=== PATIENT | female | born 1980 | race Caucasian/White ===

== ENCOUNTER → 2016-05-02 | Emergency (ER) | payer OTHER ==
[~2016-05-02] MED LIST: HYDROmorphone HCL CARPU-JECT 1 MG/1 ML DISP.SYRIN IVPUSH ONE; ONDANSETRON 4 MG/2 ML VIAL IVPB ONE; ONDANSETRON 4 MG/2 ML VIAL ONE; OXYCODONE/APAP 5/325MG COMBO TABLET ONE; OXYCODONE/APAP 5/325MG COMBO TABLET PO ONE; SODIUM CHLORIDE 1,000 ML IV ONE; SULFAMETHOXAZOLE/TRIMETHOPRIM 800MG/160MG D.S. TABLET ONE; SULFAMETHOXAZOLE/TRIMETHOPRIM 800MG/160MG D.S. TABLET PO ONE
[2016-05-02 22:12] VITALS: BP 121/76; PULSE 85; TEMP 97.4; BMI 39.8
--- NOTE | 2016-05-02 23:12 | PDOC ---
History of Present Illness - General History Source: Patient Exam Limitations: No Limitations - History of Present Illness Initial Comments: 05/02/16 23:37 The patient is a 35 year old female, with a significant past medical history of kidney stones, who presents to the emergency department complaining of right flank pain since earlier this afternoon. The patient reports she recently presented to [facility] with similar symptoms, where she was being evaluated, but left before her CT scan was done. She reports she comes here with the same type of pain. She reports associated nausea, but denies vomiting, diarrhea, or constipation. She denies any dysuria, hematuria, frequency, or urgency. The patient denies any fever, chills, cough, headache, or dizziness. Allergies: None reported. Past Surgical History: None reported. Social History: Non-smoker. Denies alcohol or drug use. <Kameron Pereyra - Last Filed: 05/03/16 01:48> - General History Source: Patient <Tyrese Capone - Last Filed: 05/03/16 03:22> - General Chief Complaint: Pain Stated Complaint: PAIN(KIDNEY STONE) Time Seen by Provider: 05/02/16 21:39 Past History <Kameron Pereyra - Last Filed: 05/03/16 01:48> - Psycho/Social/Smoking Cessation Hx Suicidal Ideation: No Smoking History: Never smoked Have you smoked in the past 12 months: No Number of Cigarettes Smoked Daily: 0 Information on smoking cessation initiated: No Hx Alcohol Use: No Drug/Substance Use Hx: No <Tyrese Capone - Last Filed: 05/03/16 03:22> - Past Medical History Allergies/Adverse Reactions: Allergies Allergy/AdvReac Type Severity Reaction Status Date / Time No Known Allergies Allergy Verified 05/02/16 21:40 Home Medications: Ambulatory Orders Ciprofloxacin [Cipro] 500 mg PO BID #14 tablet 05/03/16 Ibuprofen 800 mg PO TID #30 tablet 05/03/16 Oxycodone HCl/Acetaminophen [Percocet 5-325 mg Tablet] 1 - 2 tab PO Q6H #20 tablet MDD 4 05/03/16 Review of Systems - Review of Systems Able to Perform ROS?: Yes Comments:: 05/02/16 23:38 CONSTITUTIONAL: Absent: fever, no chills, no fatigue EYES: Absent: visual changes ENT: Absent: ear pain, no sore throat CARDIOVASCULAR: Absent: chest pain, no palpitations RESPIRATORY: Absent: cough, no SOB GI: Present: +nausea Absent: abdominal pain, no vomiting, no constipation, no diarrhea GENITOURINARY: Absent: dysuria, no frequency, no hematuria MUSKULOSKELETAL: Present: +right flank pain Absent: no arthralgia, no myalgia SKIN: Absent: rash NEURO: Absent: headache <Rigo Pereyray - Last Filed: 05/03/16 01:48> *Physical Exam - Vital Signs Last Vital Signs Temp Pulse Resp BP Pulse Ox 97.4 F L 85 14 121/76 100 05/02/16 21:40 05/02/16 21:40 05/02/16 21:40 05/02/16 21:40 05/02/16 21:40 - Physical Exam Comments: 05/02/16 23:38 GENERAL: Well-appearing, well-nourished. Mild distress HEENT: Normocephalic, atraumatic. PERRL, EOM intact. CARDIOVASCULAR: Normal S1, S2. Regular rate and rhythm. PULMONARY: Clear to auscultation bilaterally. ABDOMEN: Soft, non-distended, non-tender. MUSCULOSKELETAL Normal range of motion at all joints. No bony deformities or tenderness. Moderate right CVA tenderness. EXTREMITIES: Normal ROM in all four extremities. No gross deformities. SKIN: Warm, dry. No rash NEUROLOGICAL: No focal neurological deficits. <Kameron Pereyra - Last Filed: 05/03/16 01:48> - Vital Signs Last Vital Signs Temp Pulse Resp BP Pulse Ox 97.4 F L 85 14 121/76 100 05/02/16 21:40 05/02/16 21:40 05/02/16 21:40 05/02/16 21:40 05/02/16 21:40 <Tyrese Capone - Last Filed: 05/03/16 03:22> ED Treatment Course - LABORATORY CBC & Chemistry Diagram: 05/03/16 00:05 05/03/16 00:05 - RADIOLOGY Radiograph Interpretation: 05/03/16 01:48 EXAM: CT abdomen and pelvis INTERPRETED BY: Dr. Ojeda REVIEWED BY: Dr. Caopne IMPRESSION: Mild right hydronephrosis and minimal perinephric inflammation secondary to a 4 mm distal ureteral stone. <Kameron Pereyra - Last Filed: 05/03/16 01:48> - LABORATORY CBC & Chemistry Diagram: 05/03/16 00:05 05/03/16 00:05 <Tyrese Capone - Last Filed: 05/03/16 03:22> Medical Decision Making - Medical Decision Making 05/03/16 03:20 Dr. Capone: The scribe's documentation has been prepared under my direction and personally reviewed by me in its entirery. I confirm that the note above accurately reflects all work, treatment, procedures, and medical decision making performed by me. Patient found to have 4 mm kidney stone on right side resulting in mild hydronephrosis. patient will be discharged to follow-up with urology. <Tyrese Capone - Last Filed: 05/03/16 03:22> *DC/Admit/Observation/Transfer - Attestations Scribe Attestion: 05/02/16 23:38 Documentation prepared by Kameron Pereyra, acting as electromedical equipment repairer for Tyrese Capone DO. <Kameron Pereyra - Last Filed: 05/03/16 01:48> - Discharge Dispostion Admit: No <Tyrese Capone - Last Filed: 05/03/16 03:22> Diagnosis at time of Disposition: Renal colic on right side Hydronephrosis Qualifiers: Hydronephrosis type: with renal calculous obstruction Qualified Code(s): N13.2 - Hydronephrosis with renal and ureteral calculous obstruction - Discharge Dispostion Disposition: HOME Condition at time of disposition: Stable - Referrals Referrals: Julio Hollins [Primary Care Provider] - Sylvester Del Angel MD [Staff Physician] - - Patient Instructions Printed Discharge Instructions: DI for Kidney Stones, Hydronephrosis -- Adult - Post Discharge Activity Work/School Note: Back to Work
[2016-05-02 23:59] LABS: URINE APPEARANCE CLEAR; URINE BILIRUBIN NEGATIVE (NEGATIVE); URINE BLOOD 2+ (NEGATIVE); URINE COLOR STRAW; URINE GLUCOSE (UA) NEGATIVE (NEGATIVE); URINE KETONE NEGATIVE (NEGATIVE); URINE LEUK ESTERASE NEGATIVE (NEGATIVE); URINE NITRITE NEGATIVE (NEGATIVE); URINE PROTEIN NEGATIVE (NEGATIVE); URINE UROBILINOGEN NEGATIVE E.U./dl (0.2-1.0)
[2016-05-03 00:16] LABS: URINE BACTERIA RARE /hpf (NONE SEEN); URINE MUCUS RARE; URINE RBC 2 /hpf (0-3); URINE WBC 1 /hpf (3-5)
[2016-05-03 00:32] LABS: BASOPHIL 0.5 % (0-2.0); EOSINOPHIL 0.1 % (0-4.5); MCH 28.6 pg (25.7-33.7); MCHC 33.2 g/dl (32.0-36.0); MEAN CELL VOLUME 86.3 fl (80-96); MEAN PLT VOLUME 8.4 fl (7.5-11.1); NEUTROPHILS 72.3 % (42.8-82.8); PLATELET COUNT 323 K/MM3 (134-434); RDW 13.9 % (11.6-15.6); WHITE BLOOD COUNT 9.9 K/mm3 (4.0-10.0)
[2016-05-03 01:01] LABS: ALK PHOS 57 U/L (45-117); ANION GAP 8 (8-16); BILIRUBIN,TOTAL 0.7 mg/dL (0.2-1.0); CALCIUM 8.8 mg/dL (8.5-10.1); CO2 26 mmol/L (21-32); CREATININE 0.7 mg/dL (0.55-1.02); GLUCOSE,RANDOM 90 mg/dL (74-106); SGOT/AST 19 U/L (15-37); SGPT/ALT 24 U/L (12-78); TOT PROT 7.7 g/dl (6.4-8.2)
== END | disposition home or self-care (01) ==
LOC: JER 20:59
PROC: 3E033NZ Introduction of Analgesics, Hypnotics, Sedatives into Peripheral Vein, Percutaneous Approach (ICD-10-PCS; principal; 2016-05-02)
PROC: 3E033GC Introduction of Other Therapeutic Substance into Peripheral Vein, Percutaneous Approach (ICD-10-PCS; 2016-05-02)
PROC: 3E0337Z Introduction of Electrolytic and Water Balance Substance into Peripheral Vein, Percutaneous Approach (ICD-10-PCS; 2016-05-02)
DX: N13.2 Hydronephrosis with renal and ureteral calculous obstruction (principal); N23 Unspecified renal colic
CPT/HCPCS: 36415; 74176; 80053; 81003; 81015; 83690; 84703; 85025; 99281-25

== ENCOUNTER 2022-08-24 18:06 | Emergency (ER) | payer OTHER ==
[2022-08-24 18:34] VITALS: BP 97/65; PULSE 69; RESP 18; TEMP 98.1; BMI 34.7
[2022-08-24] MEDS ORDERED: LACTATED RINGERS SOLUTION 1000 ML INFUS.BAG IV ONE (20:05)
[2022-08-24] MEDS ORDERED: ACETAMINOPHEN 1000 MG/100 ML BAG IVPB ONE (20:06)
[2022-08-24 20:21] LABS: BASO % 1.2 % (0-2.0); EOS % 0.7 % (0-4.5); HEMATOCRIT 37.2 % (32.4-45.2); HEMOGLOBIN 12.4 GM/dL (10.7-15.3); LYMPH % 41.8 % (8-40); MCH 26.7 pg (25.7-33.7); MCHC 33.3 g/dl (32.0-36.0); MEAN CELL VOLUME 80.1 fl (80-96); MEAN PLT VOLUME 7.5 fl (7.5-11.1); MONO % 7.6 % (3.8-10.2); NEUT % 48.7 % (42.8-82.8); PLATELET COUNT 297 10^3/uL (134-434); RBC 4.65 M/mm3 (3.60-5.2)
[2022-08-24] MEDS ORDERED: ACETAMINOPHEN INJECTION 100 ML IVPB ONE (20:21)
[2022-08-24 20:35] LABS: INR 0.98 (0.83-1.09); PROTHROMBIN TIME (PATIENT) 11.4 SEC (9.7-13.0)
[2022-08-24 20:45] LABS: POTASSIUM 4.2 mmol/L (3.5-5.1)
[2022-08-24 20:47] LABS: ALBUMIN 3.7 g/dl (3.4-5.0); CALCIUM 8.9 mg/dL (8.5-10.1)
[2022-08-24 20:51] LABS: CREATININE 0.8 mg/dL (0.55-1.3)
[2022-08-24 20:52] LABS: BILIRUBIN,TOTAL 0.5 mg/dL (0.2-1); TOT PROT 7.2 g/dl (6.4-8.2)
[2022-08-24] MEDS ORDERED: METHOCARBAMOL 500 MG TABLET PO ONE (21:34)
[2022-08-24] MEDS ORDERED: METHOCARBAMOL 500 MG TABLET ONE (21:45)
== END 2022-08-24 22:36 | disposition home or self-care (01) ==
LOC: JER 18:06
PROC: 3E033NZ Introduction of Analgesics, Hypnotics, Sedatives into Peripheral Vein, Percutaneous Approach (ICD-10-PCS; principal; 2022-08-24)
DX: R53.1 Weakness (principal); R07.89 Other chest pain; R51.9 Headache, unspecified; G56.92 Unspecified mononeuropathy of left upper limb; R11.10 Vomiting, unspecified; R19.7 Diarrhea, unspecified; Z20.822 Contact with and (suspected) exposure to COVID-19
CPT/HCPCS: 0241U-QW; 36415; 71046-TC-FY; 80053; 82962; 84484; 84703; 85025; 85610; 86850; 86900; 86901; 87651; 93005; 93010; 99285-25

== ENCOUNTER 2023-04-20 18:21 | Emergency (ER) | payer OTHER ==
[2023-04-20 18:31] VITALS: BP 109/77; PULSE 81; RESP 20; TEMP 97.8; BMI 34.0
[2023-04-20] MEDS ORDERED: FAMOTIDINE 20 MG/50 ML IVPB 20 MG/50 ML MG IVPB ONE ×2 (18:37→19:15)
[2023-04-20] MEDS ORDERED: SODIUM CHLORIDE 0.9% 500 ML INFUS.BAG IV ONE (18:37)
[2023-04-20] MEDS ORDERED: ONDANSETRON 4 MG/2 ML VIAL IVPUSH ONE (18:37)
[2023-04-20 19:15] LABS: BASO % 0.4 % (0-2.0); EOS % 1.9 % (0-4.5); LYMPH % 30.8 % (8-40); MCH 27.2 pg (25.7-33.7); MCHC 33.2 g/dl (32.0-36.0); MEAN CELL VOLUME 81.9 fl (80-96); MEAN PLT VOLUME 7.6 fl (7.5-11.1); MONO % 11.1 % (3.8-10.2); NEUT % 55.8 % (42.8-82.8); PLATELET COUNT 317 10^3/uL (134-434); WHITE BLOOD COUNT 6.1 K/mm3 (4.0-10.0)
[2023-04-20] MEDS ORDERED: ONDANSETRON 4 MG/2 ML VIAL ONE (19:15)
[2023-04-20 20:33] LABS: POTASSIUM 4.5 mmol/L (3.5-5.1)
[2023-04-20 20:36] LABS: ALBUMIN 3.8 g/dl (3.4-5.0); BLOOD UREA NITROGEN 7.9 mg/dL (7-18); CALCIUM 8.9 mg/dL (8.5-10.1)
[2023-04-20 20:40] LABS: CREATININE 0.9 mg/dL (0.55-1.3)
[2023-04-20 20:41] LABS: BILIRUBIN,TOTAL 0.8 mg/dL (0.2-1); TOT PROT 7.4 g/dl (6.4-8.2)
== END 2023-04-20 20:49 | disposition home or self-care (01) ==
LOC: JER 18:21
PROC: 3E033GC Introduction of Other Therapeutic Substance into Peripheral Vein, Percutaneous Approach (ICD-10-PCS; principal; 2023-04-20)
PROC: 3E033GC Introduction of Other Therapeutic Substance into Peripheral Vein, Percutaneous Approach (ICD-10-PCS; 2023-04-20)
DX: R19.7 Diarrhea, unspecified (principal); R11.2 Nausea with vomiting, unspecified; Z20.822 Contact with and (suspected) exposure to COVID-19
CPT/HCPCS: 0241U-QW; 36415; 80053; 83690; 84703; 85025; 99284-25